=== PATIENT | female | born 1960 | race Caucasian/White ===

== ENCOUNTER 2024-11-12 05:12 | Observation (INO) ==
--- NOTE | 2024-10-21 13:27 | PAT Medication Instructions ---
Medication Instructions Date of Service October 21, 2024 Home Medications albuterol sulfate 90 mcg/actuation aerosol inhaler 1 inh inhalation QID PRN amlodipine 2.5 mg tablet 2.5 mg PO QAM amoxicillin 500 mg tablet 2,000 mg PO UD PRN atorvastatin 20 mg tablet 20 mg PO HS cholecalciferol (vitamin D3) 25 mcg (1,000 unit) capsule (Vitamin D3) 25 mcg PO DAILY cyanocobalamin (vitamin B-12) 1 tab PO DAILY cyclosporine 0.05 % eye drops 1 drp ophthalmic (eye) Q12H PRN denosumab 60 mg/mL subcutaneous syringe (Prolia) 60 mg subcut UD duloxetine 30 mg capsule,delayed release 30 mg PO QAM estradiol 10 mcg vaginal tablet (Yuvafem) 10 mcg vaginal fluticasone propionate 110 mcg/actuation HFA aerosol inhaler 1 puff inhalation BID PRN levothyroxine 75 mcg tablet 75 mcg PO QAM liraglutide (weight loss) 3 mg/0.5 mL (18 mg/3 mL) subcut pen injector (Saxenda) 3 mg subcut DAILY lorazepam 0.5 mg tablet 0.5 mg PO DAILY PRN losartan 100 mg-hydrochlorothiazide 25 mg tablet 1 tab PO QAM meclizine 12.5 mg tablet 12.5 mg PO UD PRN multivitamin 1 tab PO DAILY oxybutynin chloride 10 mg tablet,extended release 24 hr 10 mg PO HS pantoprazole 40 mg tablet,delayed release 40 mg PO UD valacyclovir 1 gram tablet 2,000 mg PO Q12H STOP 7 days before surgery liraglutide (weight loss) 3 mg/0.5 mL (18 mg/3 mL) subcut pen injector (Saxenda) 3 mg subcut DAILY Continue as directed pantoprazole 40 mg tablet,delayed release 40 mg PO UD amoxicillin 500 mg tablet 2,000 mg PO UD PRN(if needed) lorazepam 0.5 mg tablet 0.5 mg PO DAILY PRN(if needed) meclizine 12.5 mg tablet 12.5 mg PO UD PRN(if needed) ASK your prescriber and surgeon denosumab 60 mg/mL subcutaneous syringe (Prolia) 60 mg subcut UD STOP taking 24 hours before surgery estradiol 10 mcg vaginal tablet (Yuvafem) 10 mcg vaginal DO NOT take the morning of surgery cholecalciferol (vitamin D3) 25 mcg (1,000 unit) capsule (Vitamin D3) 25 mcg PO DAILY cyanocobalamin (vitamin B-12) 1 tab PO DAILY losartan 100 mg-hydrochlorothiazide 25 mg tablet 1 tab PO QAM multivitamin 1 tab PO DAILY Take morning of surgery With a small sip of water, OTHERWISE NOTHING TO EAT OR DRINK AFTER MIDNIGHT: albuterol sulfate 90 mcg/actuation aerosol inhaler 1 inh inhalation QID PRN(use if needed; please bring with you to hospital day of surgery if possible) fluticasone propionate 110 mcg/actuation HFA aerosol inhaler 1 puff inhalation BID PRN(if needed) amlodipine 2.5 mg tablet 2.5 mg PO QAM cyclosporine 0.05 % eye drops 1 drp ophthalmic (eye) Q12H PRN(if needed) duloxetine 30 mg capsule,delayed release 30 mg PO QAM levothyroxine 75 mcg tablet 75 mcg PO QAM valacyclovir 1 gram tablet 2,000 mg PO Q12H Take evening before surgery albuterol sulfate 90 mcg/actuation aerosol inhaler 1 inh inhalation QID PRN(if needed) fluticasone propionate 110 mcg/actuation HFA aerosol inhaler 1 puff inhalation BID PRN(if needed) atorvastatin 20 mg tablet 20 mg PO HS cyclosporine 0.05 % eye drops 1 drp ophthalmic (eye) Q12H PRN(if needed) oxybutynin chloride 10 mg tablet,extended release 24 hr 10 mg PO HS valacyclovir 1 gram tablet 2,000 mg PO Q12H Other Notes If you have any questions please call us at [phone] or [phone] or [phone] or [phone]
--- NOTE | 2024-10-27 09:57 | Anesthesiology Consultation ---
Date of Service October 27, 2024 Assessment & Plan (1) Encounter for pre-operative examination: Chart Review Chart Review: Acceptable Risk for Surgery (pending surgeon ordered PCP and cardio clearances ) and Patient seen in Pre Admission Testing - Awaiting PCP clearance (seen 10/15/24) (Dr Sergio Forde- [facility]) - please fax preop testing to PCP for review - Awaiting [place] [facility] [place] states she is allergic to all opioid pain medications- usually predose with Benadryl PONV- significant - requesting pre, symone and postoperative anti nausea medication Chlorhexidine allergy - Patient is NOT an ideal OPJ candidate- currently 23 hour obs Per PAT appt on 10/27/24, no recent illness/disease exposures, illness related symptoms, or recent illness/disease positive tests. Will leave to surgeon's discretion if preop Covid testing needed Teaching & Discussion Pre-Anesthesia Teaching/Discussion Notes: Instructed NPO after midnight before surgery,except medications with 15 cc of water. Medication instructions provided according to the PAT guidelines. History Surgery Operation Date: 11/12/24 07:00 Proposed Procedures p Left Total Knee Arthroplasty - Agusto Fine MD Height/Weight Height: 5 ft 6 in Weight: 78 kg Allergies Allergy/AdvReac Type Severity Reaction Status Date / Time acetaminophen Allergy itching Verified 10/17/24 12:03 [From Tylenol-Codeine #3] and hives adhesive Allergy itching Verified 10/17/24 12:03 and hives bupropion [From Wellbutrin] Allergy swelling Verified 10/17/24 12:03 of lips chlorhexidine Allergy hives/rash Verified 10/17/24 12:03 codeine Allergy itching Verified 10/17/24 12:03 [From Tylenol-Codeine #3] and hives hydrocodone Allergy itching Verified 10/17/24 12:03 and hives hydromorphone Allergy itching Verified 10/17/24 12:03 and hives lisinopril Allergy itching Verified 10/17/24 12:03 and hives naproxen [From Naprosyn] Allergy swelling Verified 10/17/24 12:03 of lips oxycodone Allergy itching Verified 10/17/24 12:03 and hives tramadol Allergy itching Verified 10/17/24 12:03 and hives vancomycin Allergy itching Verified 10/17/24 12:03 and hives Medications Home Medications Medication Instructions Recorded Confirmed Last Taken albuterol sulfate 90 mcg/actuation 1 inh inhalation QID PRN exercise 10/17/24 10/17/24 Unknown aerosol inhaler induced asthma amlodipine 2.5 mg tablet 2.5 mg PO QAM 10/17/24 10/17/24 Unknown amoxicillin 500 mg tablet 2,000 mg PO UD PRN dental 10/17/24 10/17/24 Unknown procedures atorvastatin 20 mg tablet 20 mg PO HS 10/17/24 10/17/24 Unknown cholecalciferol (vitamin D3) 25 25 mcg PO DAILY 10/17/24 10/17/24 Unknown mcg (1,000 unit) capsule (Vitamin D3) cyanocobalamin (vitamin B-12) 1 tab PO DAILY 10/17/24 10/17/24 Unknown cyclosporine 0.05 % eye drops 1 drp ophthalmic (eye) Q12H PRN 10/17/24 10/17/24 Unknown Dry Eyes denosumab 60 mg/mL subcutaneous 60 mg subcut UD 10/17/24 10/17/24 Unknown syringe (Prolia) duloxetine 30 mg capsule,delayed 30 mg PO QAM pain 10/17/24 10/17/24 Unknown release estradiol 10 mcg vaginal tablet 10 mcg vaginal Q3D 10/17/24 10/17/24 Unknown (Yuvafem) fluticasone propionate 110 1 puff inhalation BID PRN exercise 10/17/24 10/17/24 Unknown mcg/actuation HFA aerosol inhaler induced asthma levothyroxine 75 mcg tablet 75 mcg PO QAM 10/17/24 10/17/24 Unknown liraglutide (weight loss) 3 mg/0.5 3 mg subcut DAILY weight loss 10/17/24 10/17/24 Unknown mL (18 mg/3 mL) subcut pen injector (Saxenda) lorazepam 0.5 mg tablet 0.5 mg PO DAILY PRN Anxiety 10/17/24 10/17/24 Unknown losartan 100 1 tab PO QAM 10/17/24 10/17/24 Unknown mg-hydrochlorothiazide 25 mg tablet meclizine 12.5 mg tablet 12.5 mg PO UD PRN Vertigo 10/17/24 10/17/24 Unknown multivitamin 1 tab PO DAILY 10/17/24 10/17/24 Unknown oxybutynin chloride 10 mg 10 mg PO HS 10/17/24 10/17/24 Unknown tablet,extended release 24 hr pantoprazole 40 mg tablet,delayed 40 mg PO UD 10/17/24 10/17/24 Unknown release valacyclovir 1 gram tablet 2,000 mg PO Q12H 10/17/24 10/17/24 Unknown Past Medical History Medical History (Updated 10/27/24 @ 10:13 by Torri Rivera PA-C) Chronic pulmonary embolism - dx 04/2022 [facility] [place], last CT scan for 2022; "determined it to be chronic, was on eliquis for 3 months with no change to clot" - Only on Eliquis x 3 months and then d/c'ed- no subsequent issues Chronically dry eyes History of anxiety History of asthma exercise induced, has inh prn breathing and stable History of hypertension History of hypothyroidism Hx of basal cell carcinoma Hx of gastroesophageal reflux (GERD) well controlled and stable Hx of hyperlipidemia Hx of melanoma of skin removed 11/2022 Hx of migraines Hx of osteoporosis Hx of sleep apnea no device currently; getting Inspire surgery 12/2024 Nausea and vomiting after administration of anesthetic agent has done well when she is premedicated for sx. OAB (overactive bladder) Exercise / Class Metabolic Activity III < 4 Walking/Shop/Light housework (one flight of stairs- no chest pain or SOB - goes very slow due to knee pain- usually uses wheeled walker in public ) Past Surgical History Surgical History (Updated 10/27/24 @ 10:13 by Torri Rivera PA-C) History of blepharoplasty Top and bottom lid- due to peripheral vision issues History of endometrial ablation (2004) History of esophagogastroduodenoscopy (EGD) History of open reduction and internal fixation (ORIF) procedure rt tibia 2019 > hardware removed History of revision of total replacement of knee joint right History of total right knee replacement Hx of arthroscopy of left knee Hx of basal cell carcinoma excision multiple times Hx of breast surgery "removal of 3rd breast" Hx of colonoscopy Hx of melanoma excision Hx of nasal septoplasty w/ sinus surgery S/P debridement w/ irrigation right knee S/P hardware removal right tibia, 2x Past Anesthesia History No Hx of Anesthesia Complications (with exception to severe PONV ) and No Family Hx of Anesthesia Complications History of PONV History of PONV and Hx of Motion Sickness (vertigo intermittent- takes meclizine PRN ) Social History Smoking Status: Never smoker Do You Dip or Chew Tobacco: No Hx Alcohol Use: Yes alcohol intake frequency: holidays/special occasions only Hx Substance Use: No substance use type: does not use Review of Systems Patient denies chest pain, shortness of breath at rest, cough, wheezing, palpitations. No hx of seizures, stroke, PR. No hx of blood transfusions Physical Exam Vital Signs VITALS BP 110/71 P 66 TEMP 98.1 SP02 97% RESP 16 Constitutional no acute distress ENMT Mouth: no TMJ clicking Thyromental Distance: > or= 3.5 Finger Breadths (3.5) Mallampati Class: III Crowns to bottom side teeth Top right front tooth had chip filled in Neck + limited neck extension (mild) Respiratory normal respiratory effort; no respiratory distress Auscultation: lungs clear to auscultation bilaterally; no wheezes Cardiovascular Rate/Rhythm: regular rate and regular rhythm Heart Sounds: no murmur Vessels: no carotid bruit Musculoskeletal Spine: + pain with cervical ROM (mild) Extremities: extremities normal to inspection Psychiatric Orientation: alert Lab Results Anesthesia Preop Results Results Anesthesia Widget: WBC 6.39 K/ul (4.8-10.8) 10/27/24 Hgb 11.9 g/dl (12.0-16.0) L 10/27/24 Hct 34.8 % (37.0-47.0) L 10/27/24 Plt 336 K/uL (130-400) 10/27/24 Na 132 mmol/L (136-145) L 10/27/24 K 3.4 mmol/L (3.5-5.1) L 10/27/24 Cl 98 mmol/L (98-107) 10/27/24 CO2 28 mmol/L (21-32) 10/27/24 BUN 15 mg/dl (6-23) 10/27/24 Creat 0.75 mg/dl (0.6-1.2) 10/27/24 Glucose Level 82 mg/dl (70-99(Fasting)) 10/27/24 PT 10.3 Seconds (9.0-12.0) 10/27/24 PTT 28 Seconds (21-31) 10/27/24 INR 0.9 (0.9-1.1) 10/27/24 Urine Color Yellow 10/27/24 Urine Appearance Clear (Clear) 10/27/24 Urine pH 7.5 (4.5-7.5) 10/27/24 Urine Specific [place] 1.009 (1.000-1.030) 10/27/24 Urine Protein Negative (Negative) 10/27/24 Urine Glucose (UA) Negative (Negative) 10/27/24 Urine Ketones Negative (Negative) 10/27/24 Urine Blood Negative (Negative) 10/27/24 Urine Nitrite Negative (Negative) 10/27/24 Urine Bilirubin Negative (Negative) 10/27/24 Urine Urobilinogen Negative (Negative) 10/27/24 Urine Leukocyte Esterase Negative (Negative) 10/27/24 Blood Type A Positive 10/27/24 Antibody Screen NEGATIVE 10/27/24 Testing Electrocardiogram Date: 10/27/24 Findings: + NSR @ (68bpm) Left anterior fascicular block Chest X-Ray Date: 10/27/24 Findings: + NAD FINDINGS: Heart size and pulmonary vasculature are normal. Lungs are mildly hyperexpanded. No consolidation or pleural effusion.
--- NOTE | 2024-11-12 05:27 | History & Physical Bridge Note ---
Date of Service November 12, 2024 History & Physical Bridge Note I have examined the patient, reviewed the History & Physical and in the interval since the performance of the History & Physical I have noted the following changes of clinical significance: consent and site verified.infection /dvt/pe risks reviewed.no changes noted
[2024-11-12] MEDS: LR 60ML/HR IV SCH (06:13)
[2024-11-12] MEDS ORDERED: LIDOCAINE 2% 2 ML VIAL/AMP(20MG/ML) INFIL ONE (06:18)
[2024-11-12] MEDS ORDERED: PROPOFOL IV EMULSION 10 MG/ML 20 ML VIAL IV ONE (06:18)
[2024-11-12] MEDS ORDERED: PROPOFOL IV EMULSION 10 MG/ML 100 ML VIAL IV ONE (06:18)
[2024-11-12] MEDS ORDERED: ONDANSETRON INJ 2 MG/ML 2 ML VIAL ONE (06:21)
[2024-11-12] MEDS ORDERED: MIDAZOLAM HCL 1 MG/ML 2ML VIAL ONE (06:23)
[2024-11-12] MEDS: LR 500ML BOLUS, THEN 15ML/HR IV SCH (06:33)
[2024-11-12] MEDS ORDERED: BUPIVACAINE 0.5 % 5 MG/1 ML PF 10ML VIAL ONE (06:37)
[2024-11-12] MEDS ORDERED: EPINEPHrine INJ 1 MG/ML AMP ONE (06:37)
[2024-11-12] MEDS ORDERED: ROPIVACAINE 0.5% 5 MG/ML 30 ML VIAL ONE (06:38)
[2024-11-12] MEDS ORDERED: DEXAMETHASONE SOD INJ 4 MG/ML VIAL ONE ×2 (07:06)
[2024-11-12] MEDS ORDERED: FLUMAZENIL 0.1 MG/1 ML 10 ML VIAL IV PRN (07:28)
[2024-11-12] MEDS ORDERED: NALOXONE HCL 0.4 MG/1 ML VIAL/CARP IV PRN ×2 (07:28→10:00)
[2024-11-12] MEDS ORDERED: ATROPINE SULFATE 0.1 MG/ML 10ML SYR IV PRN (07:28)
[2024-11-12] MEDS ORDERED: PROMETHAZINE HCL 6.25 MG in SODIUM CHLORIDE 0.9% 50 ML IV PRN (07:28)
[2024-11-12] MEDS: ORTHO JOINT ANESTHETIC ONE (07:31)
[2024-11-12] MEDS: ROPIVACAINE 0.5% HCL/PF 246 MG, EPINEPHrine 30MG/30ML (OR USE) 0.5 MG in SODIUM CHLORID... INFIL SCH (07:51)
[2024-11-12] MEDS: TRANEXAMIC ACID 1,000 MG x 1 **TOPICAL Use Intraop TOP SCH (07:51)
--- NOTE | 2024-11-12 08:41 | Post Operative Brief Note ---
Immediate Post Op Note Date of Surgery November 12, 2024 Pre & Post Diagnosis Operation Date: 11/12/24 07:00 Pre-Op Diagnosis: Left Knee Degenerative Joint Disease Post-Op Diagnosis: Left Knee Degenerative Joint Disease I identified the patient and participated in the time-out.: Yes Procedure Operation Date: 11/12/24 07:00 Actual Procedures p Left Total Knee Arthroplasty(Left) - Agusto Fine MD Surgeon Agusto Fine MD [facility] or [facility] available Estimated Blood Loss 25 Findings Consistent with Post-Op Diagnosis Severe patellofemoral medial compartment osteoarthritis extensive synovitis Fluids 1500 cc Complications None
--- NOTE | 2024-11-12 08:45 | Operative Report ---
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 Tourniquet was inflated to 275 mmHg after exsanguination limb reversal branch for total of 52 minutes. Midline exposure was utilized. Parapatellar thyrotomy performed synovectomy completed appropriate releases made. Cruciates resected tibia subluxated menisci resected. Distal femur and inner distal femoral cut made 10 mm proximal tibia cut then made 4 mm extension gap was excellent. Femur was then sized to a 3 appropriate cutting block applied the anterior posterior, chamfer cuts made. The flexion gap was checked it was excellent. The box cut was then made a size 3 fit well. The tibia was then broached reamed to a size 3 and a 10 spacer were provided excellent stability and midrange flexion full flexion and allowed full extension. Patella was then everted it was quite small placed the tyler to decrease the resection leaving 14 mm. It was sized to 35 button then seated tracked well. Ortho mix was then injected all about the knee all trial elements were then removed the knee was soaked in Betadine for 3 minutes soaked in TXA for 3 minutes and the permanent knee cemented into position tibia femur patella in an order at 12 minutes of tourniquet deflated minor bleeding points controlled electrocautery at 14 minutes the knee was then placed through range of motion everything was excellent stable tracked well patellofemoral joint alvarado. The trial spacer was then removed knee was then irrigated 1 final time no cement removal was required. Permanent liner was then seated the knee reduced and closed at 40 degrees of flexion with #2 Vicryl 2-0 Vicryl and stainless steel clips appropriate dressing applied the patient transferred recovery in satisfactory descending tolerated the procedure well. EBL was 25 cc or less crystalloid 1500 cc bone pathology pending x-ray pending. Summary of implants size 35 patella size 3 left femur posterior cruciate substituting size 3 tibia size 3 x 10 mm poly posterior cruciate stabilized. [place] G2 bags EBL 25 cc or less crystalloid 1500 cc. The DVT PE prophylaxis to start tomorrow. Family contacted. I attest to the content of the Intraoperative Record and any orders documented therein. Any exceptions are noted below.
--- NOTE | 2024-11-12 08:46 | Orthopedic Progress Note ---
Date of Service November 12, 2024 Orthopedic Progress Note Underwent left total knee replacement. Tolerated well. Denies chest pain shortness of breath fever chills nausea vomiting or headache. Vital signs are stable she is afebrile. Neurovascular check limited by spinal. X-ray pending family contacted.
--- NOTE | 2024-11-12 08:47 | Discharge Summary ---
Date of Service November 13, 2024 Admission HPI Per Admitting Provider Osteoarthritis left knee status post left total knee replacement Principal Diagnosis Osteoarthritis left knee status post left total knee replacement Discharge Data Allergies Allergy/AdvReac Type Severity Reaction Status Date / Time acetaminophen Allergy itching Verified 11/12/24 05:42 [From Tylenol-Codeine #3] and hives adhesive Allergy itching Verified 11/12/24 05:42 and hives bupropion [From Wellbutrin] Allergy swelling Verified 11/12/24 05:42 of lips chlorhexidine Allergy hives/rash Verified 11/12/24 05:42 codeine Allergy itching Verified 11/12/24 05:42 [From Tylenol-Codeine #3] and hives hydrocodone Allergy itching Verified 11/12/24 05:42 and hives hydromorphone Allergy itching Verified 11/12/24 05:42 and hives lisinopril Allergy Cough Verified 11/12/24 05:42 naproxen [From Naprosyn] Allergy swelling Verified 11/12/24 05:42 of lips oxycodone Allergy itching Verified 11/12/24 05:42 and hives tramadol Allergy itching Verified 11/12/24 05:42 and hives vancomycin Allergy itching Verified 11/12/24 05:42 and hives daptomycin AdvReac Redness of Verified 11/12/24 12:20 Skin Vaccinations None Consultations None Procedures Performed Operation Date: 11/12/24 07:00 Actual Procedures p Left Total Knee Arthroplasty cemented (Left) - Agusto Fine MD Ordered Studies 11/12/24 05:00 US - OR guided needle placemen Routine Hospital Course (1) Status post left knee replacement: Total Time Total Time Spent Total Time Spent (In Minutes): 5 Discharge Plan Discharge Items Reason For Visit: Left Knee Osteoarthritis Discharge Diagnosis: Status post left cemented total knee replacement Follow-up/Referrals: Sergio Forde M.D. [Primary Care Provider] - Addtl Attending Provider Instructions: DIET: * Resume previous diet. MEDICATIONS: * Please take your prescriptions as instructed at your pre-op appointment and/or see medication discharge instructions listed above. * If concerns develop, call your physician's office at . SPECIAL CARE INSTRUCTIONS: * Ice/Elevate as instructed. * Keep dressing clean, dry, intact. * Your surgical extremity may be discolored due to prepping agents used on the skin. A bluish-green tint is a normal variant and should not cause alarm. Call your doctor at [phone] if: * Temperature above 101 degrees * Pain not relieved by pain medicine ordered * There is increased drainage or redness from any incision * You have any unanswered questions, problems or concerns. FOLLOW UP VISIT: * If not already scheduled, please call the office at to schedule a follow-up appointment. Stand-Alone Forms: My [facility] Medications and DC Order Prescriptions: No Action multivitamin Tablet 1 tab PO DAILY atorvastatin 20 mg Tablet 20 mg PO HS oxybutynin chloride 10 mg Tablet Extended Release 24hr 10 mg PO HS valacyclovir [Valtrex] 1 gram Tablet 2,000 mg PO Q12H PRN (Reason: Cold Sores) meclizine 12.5 mg Tablet 12.5 mg PO UD PRN (Reason: Vertigo) amlodipine 2.5 mg Tablet 2.5 mg PO QAM amoxicillin 500 mg Tablet 2,000 mg PO UD PRN (Reason: dental procedures) levothyroxine 75 mcg Tablet 75 mcg PO QAM losartan-hydrochlorothiazide 100-25 mg Tablet 1 tab PO QAM lorazepam 0.5 mg Tablet 0.5 mg PO DAILY PRN (Reason: Anxiety) pantoprazole 40 mg Tablet,Delayed Release (Dr/Ec) 40 mg PO UD Rx Instructions: 40mg QAM and may take second dose in evening prn albuterol sulfate 90 mcg/actuation Hfa Aerosol Inhaler 1 inh INHALATION QID PRN (Reason: exercise induced asthma) fluticasone propionate [Flovent HFA] 110 mcg/actuation Hfa Aerosol Inhaler 1 puff INHALATION BID PRN (Reason: exercise induced asthma) cholecalciferol (vitamin D3) [Vitamin D3] 25 mcg (1,000 unit) Capsule 25 mcg PO DAILY Vitamin B-12 Tablet,Chewable 1 tab PO DAILY duloxetine 30 mg Capsule,Delayed Release(Dr/Ec) 30 mg PO QAM estradiol [Yuvafem] 10 mcg Tablet 10 mcg VAGINAL Q3D Prolia 60 mg/mL Syringe 60 mg SUBCUT UD Rx Instructions: every 6 months Saxenda 3 mg/0.5 mL (18 mg/3 mL) Pen Injector 3 mg SUBCUT 3XWK cyclosporine 0.05 % Drops 1 drp OPHTHALMIC (EYE) Q12H PRN (Reason: Dry Eyes) Admission Data Admit Date/Time: 11/12/24 08:56 Attending Provider: Agusto Fine Admit Provider: Agusto Fine Primary Care Provider: Sergio Forde
--- NOTE | 2024-11-12 09:06 | XRay Report ---
XR knee LT 1 or 2V routine CLINICAL HISTORY: Status post left total knee replacement COMPARISON: None FINDINGS: 2 postoperative views of the left knee demonstrate a total knee replacement with satisfact ory positioning and alignment of the prosthetic components. Expected postoperative changes are presen t. Skin surjit are noted anteriorly. IMPRESSION: Satisfactory postop appearance ACT 112: Negative or not required by law. Electronically signed by: Sandra Joseph M.D. 11/12/2024 9:05 AM
[2024-11-12] MEDS: ONDANSETRON INJ 2 MG/ML 2 ML VIAL IV PRN (09:27)
--- NOTE | 2024-11-12 09:41 | Anesthesiology Progress Note ---
Date of Service November 12, 2024 Anesthesia Post Procedure Vital Signs Vital Signs: Temp Pulse Pulse Resp BP BP Pulse Ox 11/12/24 09:30 36.3 C L 70 17 121/67 98 11/12/24 09:20 72 19 119/60 98 11/12/24 09:10 79 24 124/65 95 11/12/24 09:00 73 13 122/61 96 11/12/24 08:50 81 16 104/73 100 11/12/24 08:44 36.1 C L 77 15 119/63 97 11/12/24 05:55 37 C 65 20 129/62 98 O2 Del Method O2 Flow Rate 11/12/24 09:30 Room Air 11/12/24 09:20 Room Air 11/12/24 09:10 Room Air 11/12/24 09:00 Room Air 11/12/24 08:50 Nasal Cannula 2 11/12/24 08:44 Nasal Cannula 2 11/12/24 05:55 Room Air Pain Intensity Left Knee: Pain Intensity: 6 Right Knee: Pain Intensity: 6 Left Hand: Pain Intensity: 3 Transfer of Care Handoff Completed per policy Notes Mental Status: alert / awake / arousable Patient Amnestic to Procedure: Yes Nausea / Vomiting: adequately controlled Pain: adequately controlled Airway Patency, RR, SpO2: stable & adequate BP & HR: stable & adequate Hydration State: stable & adequate Anesthetic Complications: no major complications apparent
[2024-11-12] MEDS ORDERED: MAGNESIUM HYDROXIDE SUSP 30 ML UDC PO PRN (10:00)
[2024-11-12] MEDS ORDERED: MoRPHine SULFATE 4 MG/ML 1 ML CARP\\VIAL IV PRN (10:00)
[2024-11-12] MEDS ORDERED: ALBUTEROL HFA 8 GM INHALER INH PRN (10:00)
[2024-11-12] MEDS ORDERED: NON-FORMULARY MEDICATION (Amoxicillin 500 mg Tablet) PO PRN (10:00)
[2024-11-12] MEDS ORDERED: ALUMINUM/MAGNESIUM SUSP 30 ML UDC PO PRN (10:00)
[2024-11-12] MEDS ORDERED: MECLIZINE 12.5 MG TAB PO PRN (10:00)
[2024-11-12] MEDS ORDERED: METOCLOPRAMIDE HCL INJ 5 MG/ML 2 ML VIAL IV PRN (10:00)
[2024-11-12] MEDS ORDERED: ARTIFICIAL TEARS OP PRN (10:11)
[2024-11-12] MEDS ORDERED: FLUTICASONE FUROATE 100MCG 14 PUFFS/INHALER INH PRN (10:12)
--- NOTE | 2024-11-12 11:01 | Operative Report ---
Post Operative Report Pre & Post Diagnosis Operation Date: 11/12/24 07:00 Pre-Op Diagnosis: Left Knee Degenerative Joint Disease Post-Op Diagnosis: Left Knee Degenerative Joint Disease I identified the patient and participated in the time-out.: Yes Procedure Operation Date: 11/12/24 07:00 Actual Procedures p Left Total Knee Arthroplasty(Left) - Agusto Fine MD Surgeon ALVIN Fine MD Staff Counselor [facility] PAC no resident or fellow available Estimated Blood Loss 25 Findings Consistent with Post-Op Diagnosis see operative report Specimens see operative report Drains none Complications none Disposition Accompanied Patient To Recovery: Yes Indications This 64 year old female presented to the office with complaints of persisting Left knee pain. She has tried conservative care measures including injection therapy, physical therapy, and activity modification, without improvement. She elected to proceed with surgical intervention after being educated about potential risks and outcomes. Preoperative imaging was obtained. Description of Procedure The patient was administered a spinal anesthetic and then taken to the operating room where she was given sedation. She was prepped and draped in the usual sterile fashion. Please see Dr. Fine's operative report for specifics of the procedure. I was present for the entire case from initial patient positioning through final wound closure. Assistance was provided in tissue retraction, hemostasis, trial implant placement, final implant placement, and final wound closure. The patient was taken to the recovery room in satisfactory condition. I attest to the content of the Intraoperative Record and any orders documented therein. Any exceptions are noted below.
[2024-11-12] MEDS: MULTIVITAMIN TAB PO SCH (11:39)
[2024-11-12] MEDS: DOCUSATE SODIUM 100 MG CAP PO SCH (11:39)
[2024-11-12] MEDS: LOSARTAN/HCTZ 50/12.5MG TAB PO SCH (11:39)
[2024-11-12] MEDS: diphenhydrAMINE 50 MG/ML VIAL IV PRN (11:42)
[2024-11-12] MEDS: DAPTOmycin 500 MG in SYRINGE 0 ML IV ONE (11:47)
--- NOTE | 2024-11-12 11:48 | Orthopedic Progress Note ---
Date of Service November 12, 2024 Assessment & Plan Admission and Anticipated Discharge Date Admission Date: November 12, 2024 Orthopedic Progress Note Postop check patient doing well sitting up in bed. Has some urinary continence and soiled her dressing. Vital signs are stable she is afebrile. Neurovascular check from sciatic nerve is intact. Can do straight leg raise can easily flex to 80 degrees. Has good inversion eversion and ankle dorsi and plantarflexion. Dressing changed. This point in time I will allow weightbearing as tolerated to get to the bathroom and avoid similar episodes. Wear knee immobilizer for gait for the next 48 hours. Does not need to be on when she is not ambulating.
[2024-11-12] MEDS: SODIUM CHLORIDE 0.9% 1,000 ML IV SCH (12:18)
[2024-11-12] MEDS: ACETAMINOPHEN 500 MG TAB PO SCH (13:29)
[2024-11-12] MEDS: ASCORBIC ACID 500 MG TAB PO SCH (16:59)
[2024-11-12] MEDS: FERROUS GLUCONATE 324 MG TAB PO SCH (16:59)
--- NOTE | 2024-11-12 17:57 | Orthopedic Progress Note ---
Date of Service October; Discussed situation with the patient. With shared decision making the patient has decided to stay this evening. She feels like she would much rather care for her knee here tonight. We explained to her that these can be done as outpatient procedures and that she is far enough along that if she feels comfortable she can do that. She is declining that option. Of note her visual acuity is fine she reads well she walks well . Assessment & Plan (1) Vitreous floaters of right eye: Plan: The patient was educated regarding today's findings. The patient states her neurobiologist recommended urgent evaluation today, and in fact would have preferred that she was evaluated yesterday. The patient states she does not have any local neurobiologist. She has only been seen for her eyes in [place]. I have verified with the emergency department that there is no ophthalmology call this week. It was explained to the patient that unfortunately, I do not have an eye service to provide evaluation. She was offered to be discharged to home this evening so that she may follow-up with her neurobiologist on an outpatient basis today or tomorrow. The patient verbalized that she preferred to be observed overnight given her surgery today. She would then travel to [place] tomorrow for evaluation. It was emphasized to her that given her current narcotic pain medication, she should not be driving. She states her boyfriend will pick her up in the morning from here and take her to [place]. The importance of icing and elevating her leg to minimize swelling and pain was discussed. I will have her Eliquis held, in case her eye requires a procedure tomorrow. The patient is in agreement with today's plan, and verbalized an understanding and agreement while in the presence of myself, Dr. Fine, and her nurse Sissy. Admission and Anticipated Discharge Date Admission Date: November 12, 2024 Subjective The patient is evaluated at this time in her room. She states that she has had floaters in her vision since last Sunday. She notified her neurobiologist at [place] last week. She states she was notified today that she required urgent evaluation of her eyes, and they recommended she be evaluated today. I was made aware of this conversation by her nurse, and verified it with the pat ielidia. The patient states her floaters continue now, but there is no pain in her eyes. She denies any loss of vision. Physical Exam Physical Exam: General: Well-developed, well-nourished, middle-aged female, in no acute distress. Sitting in bed. When I entered the room, the patient was sitting in a slightly darkened room, reading a magazine. She is able to see me clearly. Results & Data Vital Signs (Past 12 Hours) Vital Signs Temp Pulse Pulse Resp BP BP Pulse Ox 11/12/24 12:50 36.5 C 94 H 18 131/74 100 11/12/24 12:00 91 H 18 128/75 100 11/12/24 11:05 77 18 126/69 93 11/12/24 10:20 36.4 C L 74 16 130/84 100 11/12/24 09:50 36.4 C L 76 18 116/72 100 11/12/24 09:30 36.3 C L 70 17 121/67 98 11/12/24 09:20 72 19 119/60 98 11/12/24 09:10 79 24 124/65 95 11/12/24 09:00 73 13 122/61 96 11/12/24 08:50 81 16 104/73 100 11/12/24 08:44 36.1 C L 77 15 119/63 97 11/12/24 05:55 37 C 65 20 129/62 98 O2 Del Method O2 Flow Rate 11/12/24 12:50 Room Air 11/12/24 12:00 Room Air 11/12/24 11:05 Room Air 11/12/24 10:20 Room Air 11/12/24 09:50 Room Air 11/12/24 09:30 Room Air 11/12/24 09:20 Room Air 11/12/24 09:10 Room Air 11/12/24 09:00 Room Air 11/12/24 08:50 Nasal Cannula 2 11/12/24 08:44 Nasal Cannula 2 11/12/24 05:55 Room Air
[2024-11-12] MEDS: ATORVASTATIN 20 MG TAB PO SCH (20:47)
[2024-11-12] MEDS: OXYBUTYNIN CHLORIDE XL 5 MG TABCR PO SCH (20:47)
[2024-11-12] MEDS: SENNA 8.6 MG TAB PO SCH (20:48)
[2024-11-12] MEDS: LORazepam 0.5 MG TAB PO PRN (21:59)
[2024-11-13] MEDS: LEVOTHYROXINE SODIUM 75 MCG TABLET PO SCH (05:56)
--- NOTE | 2024-11-13 07:05 | Orthopedic Progress Note ---
Date of Service November 13, 2024 Assessment & Plan Admission and Anticipated Discharge Date Admission Date: November 12, 2024 Orthopedic Progress Note Postop day #1 status post left total knee replacement. Doing reasonably well needs to be energized little bit sluggish urinary affect. With encouragement actually does quite well. Wound dressing is removed. Wound is clean and dry. Neurovascular check femoral sciatic nerve is normal. Calves nontender. Most of her tenderness is where the tourniquet was. Wound is redressed. Was instructed to leave it on until Sunday. Keep wound clean and dry. Follow-up in 2 weeks. Apparently will get her eyes checked today at [place]. Will hold off the anticoagulation until she is evaluated by ophthalmology. She can start Eliquis after cleared by ophthalmology. She is requesting that her prescriptions be sent to [facility] down at [place] which is next to where the ophthalmology site is. Will discuss with physicians machine operator assistant to do that. Discharge after PT OT today.
[2024-11-13 07:19] LABS: Hematocrit (blood only) 28.1 % (37.0-47.0); Hemoglobin 9.4 g/dl (12.0-16.0); Mean Corpuscular Hemoglobin 29.8 pg (25.0-34.0); Mean Corpuscular Volume 89.2 fL (80.0-100.0); Platelet Count 308 K/uL (130-400); RDW Standard Deviation 43.8 fL (36.4-46.3); Red Blood Count 3.15 M/uL (4.20-5.40); White Blood Count 9.49 K/ul (4.8-10.8)
[2024-11-13 07:26] VITALS: BP 110/69; PULSE 69; RESP 18; TEMP 98.1; O2SAT 96
[2024-11-13 08:05] LABS: Anion Gap 5.0 (3-11); Blood Urea Nitrogen 14.0 mg/dl (6-23); Calcium 8.4 mg/dl (8.6-10.3); Carbon Dioxide 28.0 mmol/L (21-32); Chloride 101.0 mmol/L (98-107); Creatinine Clr Calc Pharmacy 68.5 ml/min; Glucose 107.0 mg/dl (70-99(Fasting)); Potassium 4.1 mmol/L (3.5-5.1); Sodium 134.0 mmol/L (136-145)
[2024-11-13] MEDS: dexAMETHasone 10 MG in SYRINGE 0 ML IV SCH (08:29)
[2024-11-13] MEDS: ASPIRIN 81 MG ECTAB PO STA (08:30)
[2024-11-13] MEDS ORDERED: APIXABAN 2.5 MG TAB PO SCH (09:00)
[2024-11-13] MEDS: ONDANSETRON INJ 2 MG/ML 2 ML VIAL IV PRN (09:22)
== END 2024-11-13 09:45 | disposition home or self-care (01) ==
LOC: ASU 05:12 → 3E 05:12